=== PATIENT | male | born 1975 | race American Indian/Alaskan Native ===

== ENCOUNTER 2019-10-20 10:59 | Emergency (ER) | payer SELFPAY ==
[2019-10-20 12:37] VITALS: BP 154/98
--- NOTE | 2019-10-20 12:42 | Event Note ---
ED Screening Note Date of service: 10/20/19 Time: 12:38 ED Screening Note: 44 y o male with Hx of DM out of meds glyburide 5mg FBS- 183 no symptoms or complaints This initial assessment/diagnostic orders/clinical plan/treatment(s) is/are subject to change based on patients health status, clinical progression and re- assessment by fellow clinical providers in the ED. Further treatment and workup at subsequent clinical providers discretion. Patient/guardian urged not to elope from the ED as their condition may be serious if not clinically assessed and managed. Initial orders include: Pt presents with a non-medical emergency Examination is normal, Vital sign are stable Pt given information for clinics to follow up with pcp for further treatment and evaluation Also discussed strict return precautions in detail with pt who verbalized understanding
== END 2019-10-20 12:46 | disposition left against medical advice (07) ==
LOC: ED 10:59
DX: R73.9 Hyperglycemia, unspecified (principal); Z53.21 Procedure and treatment not carried out due to patient leaving prior to being seen by health care provider
CPT/HCPCS: 82962